=== PATIENT | male | born 1995 | race Two or more races ===

== ENCOUNTER 2024-02-16 14:45 | Emergency (ER) | payer OTHER ==
[~2024-02-16] VITALS: Ht 175.3 cm; Wt 80.9 kg
[2024-02-16 14:52] VITALS: TEMP 98.2
[2024-02-16] MEDS: PERTUSS(ACELL),DIPH,TET/PF 0.5 ML SYRINGE [ADULT] IM. ONE (17:35)
[2024-02-16 18:59] VITALS: BP 114/69; PULSE 70; RESP 18
== END 2024-02-16 19:08 | disposition home or self-care (01) ==
LOC: EMS 14:52
DX: S00.81XA Abrasion of other part of head, initial encounter (principal); W22.8XXA Striking against or struck by other objects, initial encounter; Y93.89 Activity, other specified; Y92.89 Other specified places as the place of occurrence of the external cause; Y99.8 Other external cause status
CPT/HCPCS: 90471; 90715; 99283